=== PATIENT | female | born 2000 | race African-American/Black ===

== ENCOUNTER 2019-09-11 04:11 | Inpatient (IN) ==
[2019-09-11] MEDS ORDERED: Naloxone 0.4 MG/ML INJ IVP PRN (04:35)
[2019-09-11] MEDS ORDERED: Famotidine 20 MG/2 ML VIAL IVP PRN (04:35)
[2019-09-11] MEDS ORDERED: Metoclopramide 10 MG/2 ML VIAL IVP PRN (04:35)
[2019-09-11] MEDS ORDERED: Lidocaine 1% 20 ML MDV INFILT PRN (04:38)
[2019-09-11] MEDS ORDERED: Ondansetron 4 MG/2 ML VIAL IVP PRN (04:38)
[2019-09-11] MEDS ORDERED: miSOPROStoL 25 MCG TABLET VG PRN (04:38)
[2019-09-11] MEDS ORDERED: Azithromycin 500 MG in 0.9 % Sodium Chloride 250 ML IVPB ONE (04:38)
[2019-09-11 05:18] LABS: Basophils % 0.6 %; Eosinophils # 0.1 K/mcL (0.0-0.6); Eosinophils % 1.2 %; Hematocrit 32.7 % (35.3-44.9); Hemoglobin 10.3 g/dL (11.5-15.4); Immature Granulocytes % 0.4 % (0-4); Lymphocytes # 1.8 K/mcL (0.6-4.6); Lymphocytes % 26.1 %; Mean Corpuscular HGB Conc 31.5 g/dL (31.6-35.5); Mean Corpuscular Hemoglobin 25.4 pg (28.0-33.3); Mean Corpuscular Volume 80.7 fL (83.0-100.0); Mean Platelet Volume 11.7 fL (9.4-12.4); Monocytes # 0.7 K/mcL (0.0-1.3); Monocytes % 10.5 %; Neutrophils # 4.1 K/mcL (1.6-8.9); Platelet Count 185 K/mcL (140-400); Red Blood Count 4.05 M/mcL (3.82-4.97); Red Cell Distribution Width 13.5 % (11.5-14.5); Segmented Neutrophils % 61.2 %; White Blood Count 6.8 K/mcL (4.3-11.1)
[2019-09-11 05:21] LABS: Amphetamine Screen,Urine Negative ng/mL (Cutoff=1000); Barbiturate Screen,Urine Negative ng/mL (Cutoff=200); Benzodiazepines Screen,Urine Negative ng/mL (Cutoff=200); Cannabinoid Screen,Urine Negative ng/mL (Cutoff = 50); Cocaine Screen,Urine Negative ng/mL (Cutoff= 300); Opiate Screen,Urine Negative ng/mL (Cutoff=300); Phencyclidine Screen,Urine Negative ng/mL (Cutoff=25)
[2019-09-11] MEDS ORDERED: Penicillin G Potassium 5,000,000 UNIT in 0.9 % Sodium Chloride Mini Bag 100 ML IVPB ONE (05:39)
[2019-09-11] MEDS: Ringers Solution, Lactated 1,000 ML IVC SCH ×3 (06:42→20:07)
[2019-09-11] MEDS: Penicillin G Potassium 2,500,000 UNIT in 0.9 % Sodium Chloride 100 ML IVPB SCH ×4 (10:43→22:44)
[2019-09-11] MEDS ORDERED: EPHEDrine 50 MG/ML VIAL IVP PRN (11:52)
[2019-09-11] MEDS: *HR* FentaNYL (PF) 100 MCG/2 ML VIAL IVP PRN ×2 (12:06→13:57)
[2019-09-11] MEDS ORDERED: miSOPROStoL 25 MCG TABLET PO PRN (14:47)
[2019-09-11] MEDS ORDERED: *HR* FentaNYL (PF) 100 MCG/2 ML VIAL ONE (16:52)
[2019-09-11] MEDS ORDERED: Bupivacaine-MPF 0.25% 10 ML VIAL ONE (16:53)
[2019-09-11] MEDS: Epidural Premix (fent/bupiv) 110 ML EP SCH ×2 (17:20→23:36)
[2019-09-11] MEDS ORDERED: Oxytocin 20 units/ LR 1000 mL 20 UNIT/1,000 ML BAG IVC SCH (19:15)
[2019-09-12] MEDS: Penicillin G Potassium 2,500,000 UNIT in 0.9 % Sodium Chloride 100 ML IVPB SCH (02:32)
[2019-09-12] MEDS: Epidural Premix (fent/bupiv) 110 ML EP SCH (05:27)
[2019-09-12] MEDS ORDERED: Methylergonovine 0.2 MG/ML AMPUL IM ONE (07:41)
[2019-09-12] MEDS ORDERED: Oxytocin 20 units/ LR 1000 mL 20 UNIT/1,000 ML BAG IVC SCH (13:02)
[2019-09-12] MEDS ORDERED: Measles/Mumps/Rubella Vacc 0.5 ML VIAL SQ PRN (13:02)
[2019-09-12] MEDS ORDERED: Rho Immune Globulin 1,500 UNIT SYRINGE IM PRN (13:02)
[2019-09-12] MEDS ORDERED: Prenatal Vit/FA 1 EACH TABLET PO SCH (13:02)
[2019-09-12] MEDS: Ibuprofen 600 MG TABLET PO PRN (13:31)
[2019-09-13] MEDS ORDERED: Benzocaine/Menthol 56 GM AEROSOL SPRAY TP PRN (01:07)
[2019-09-13] MEDS: Acetaminophen 325 MG TABLET PO PRN ×2 (04:44→08:58)
[2019-09-13 06:43] LABS: Basophils % 0.3 %; Eosinophils # 0.1 K/mcL (0.0-0.6); Eosinophils % 0.9 %; Hematocrit 24.8 % (35.3-44.9); Immature Granulocytes % 0.4 % (0-4); Lymphocytes # 1.6 K/mcL (0.6-4.6); Lymphocytes % 13.7 %; Mean Corpuscular HGB Conc 31.9 g/dL (31.6-35.5); Mean Corpuscular Hemoglobin 26.2 pg (28.0-33.3); Mean Corpuscular Volume 82.4 fL (83.0-100.0); Mean Platelet Volume 10.8 fL (9.4-12.4); Monocytes # 1.1 K/mcL (0.0-1.3); Neutrophils # 8.5 K/mcL (1.6-8.9); Platelet Count 164 K/mcL (140-400); Red Blood Count 3.01 M/mcL (3.82-4.97); Red Cell Distribution Width 13.8 % (11.5-14.5); Segmented Neutrophils % 74.7 %
[2019-09-13 06:45] LABS: Hemoglobin 7.9 g/dL (11.5-15.4); White Blood Count 11.4 K/mcL (4.3-11.1)
[2019-09-13 08:09] VITALS: BP 111/69
[2019-09-13] MEDS: Ibuprofen 600 MG TABLET PO PRN (08:57)
== END 2019-09-13 13:27 | disposition home or self-care (01) | DRG 560 ==
LOC: 1NENULAB 04:11 → 1NENUOBS 09-12 11:06
PROVIDERS: ADMIT Student in an Organized Health Care Education/Training Program; ATTEND Student in an Organized Health Care Education/Training Program